=== PATIENT | male | born 1990 | race Caucasian/White ===

== ENCOUNTER 2017-12-31 18:03 | Emergency (ER) | payer SELFPAY ==
[2017-12-31] MEDS ORDERED: Cephalexin 500 MG CAP ONE (19:25)
[2017-12-31] MEDS ORDERED: predniSONE 20 MG TAB ONE (19:26)
[2017-12-31] MEDS ORDERED: diphenhydrAMINE 25 MG CAP ONE (19:26)
== END 2017-12-31 19:56 | disposition home or self-care (01) ==
LOC: MADERS 18:03
DX: S50.862A Insect bite (nonvenomous) of left forearm, initial encounter (principal); W57.XXXA Bitten or stung by nonvenomous insect and other nonvenomous arthropods, initial encounter
CPT/HCPCS: 99282; J7506

== ENCOUNTER 2018-04-30 10:16 | Emergency (ER) | payer SELFPAY ==
[2018-04-30] MEDS ORDERED: Naproxen 500 MG TAB ONE (10:45)
[2018-04-30] MEDS ORDERED: cefTRIAXone\\ROCEPHIN 1 GM VIAL ONE (10:45)
[2018-04-30] MEDS ORDERED: Sulfameth/Trimethoprim DS 800-160mg TAB ONE (10:45)
[2018-04-30] MEDS ORDERED: HYDROcodone/Acetaminophen 10/325 mg Tablet ONE (10:45)
[2018-04-30] MEDS ORDERED: Lidocaine 1% 20 ML MDV ONE (10:46)
== END 2018-04-30 11:20 | disposition home or self-care (01) ==
LOC: MADERS 10:16
DX: S30.861A Insect bite (nonvenomous) of abdominal wall, initial encounter (principal); S60.561A Insect bite (nonvenomous) of right hand, initial encounter; S60.562A Insect bite (nonvenomous) of left hand, initial encounter; S50.862A Insect bite (nonvenomous) of left forearm, initial encounter; S50.861A Insect bite (nonvenomous) of right forearm, initial encounter; L08.9 Local infection of the skin and subcutaneous tissue, unspecified; L04.9 Acute lymphadenitis, unspecified; W57.XXXA Bitten or stung by nonvenomous insect and other nonvenomous arthropods, initial encounter
CPT/HCPCS: 96372; J0696; J2001